=== PATIENT | male | born 1955 | race Two or more races ===

== ENCOUNTER 2021-09-11 07:52 | Inpatient (IN) | payer OTHER ==
[~2021-09-11] VITALS: Ht 162.6 cm; Wt 70.8 kg
[~2021-09-11 07:52] MED LIST: IBUP800T27 PO; TAMS0.4C36 PO; TRAM50TA2 PO
[2021-09-11] MEDS ORDERED: MINERAL OIL TOPICAL 10ml TOP ONE (08:42)
[2021-09-11] MEDS: THROMBIN (BOVINE) 5000 UNIT SOL VIAL ONE ×2 (08:42→12:42)
[2021-09-11] MEDS ORDERED: fentaNYL CITRATE 100 MCG/2 ML VL ONE (09:09)
[2021-09-11] MEDS ORDERED: MIDAZOLAM HCL 2MG/2ML 2ml VIAL (1mg/ml) ONE (09:09)
[2021-09-11] MEDS ORDERED: fentaNYL CITRATE 5 ML ONE ×2 (09:09→11:07)
[2021-09-11] MEDS ORDERED: MEPERIDINE HCL (25 MG/ML) 1ML VIAL ONE (09:10)
[2021-09-11] MEDS ORDERED: ceFAZolin 1GM/50ML 100 ML IV ONE (09:11)
[2021-09-11] MEDS ORDERED: GABAPENTIN 300 MG CAP PO ONE (09:15)
[2021-09-11] MEDS ORDERED: CELECOXIB 100 MG CAP PO ONE (09:15)
[2021-09-11] MEDS ORDERED: traMADol HCL 50 MG TAB PO ONE (09:15)
[2021-09-11] MEDS ORDERED: DexAMETHasone SOD PHOS 10MG/1ML VIAL INJ ONE (10:44)
[2021-09-11] MEDS ORDERED: PROPOFOL 10 MG/ML 20 ML IV ONE (10:44)
[2021-09-11] MEDS ORDERED: hydrALAZINE HCL 20 MG/ML VL IV PRN (10:45)
[2021-09-11] MEDS ORDERED: MORPHINE SULFATE 4 MG/ML SYR/VIAL IV PRN (10:45)
[2021-09-11] MEDS ORDERED: MIDAZOLAM HCL 2MG/2ML 2ml VIAL (1mg/ml) IV PRN (10:45)
[2021-09-11] MEDS ORDERED: ePHEDrine SULFATE 50 MG/ML AMP IV PRN (10:45)
[2021-09-11] MEDS ORDERED: LABETALOL HCL 5 MG/ML 4ML SYRINGE IV PRN (10:45)
[2021-09-11] MEDS ORDERED: HYDROmorphone HCL 2 MG/ML VL/or syr IV PRN (10:45)
[2021-09-11] MEDS ORDERED: ONDANSETRON HCL 4 MG/2 ML VIAL IV PRN ×2 (10:45→12:45)
[2021-09-11] MEDS ORDERED: ONDANSETRON HCL 4 MG/2 ML VIAL ONE (11:14)
[2021-09-11] MEDS ORDERED: OXYCODONE W/ ACETAMINOPHEN 5/325MG TABLET PO PRN (12:45)
[2021-09-11] MEDS ORDERED: MORPHINE SULFATE INJ 2 MG/ml SYRG IV PRN ×2 (12:45)
[2021-09-11] MEDS: LACTATED RINGER'S 1,000 ML IV SCH (12:45)
[2021-09-11] MEDS ORDERED: NITROGLYCERIN 0.4 MG SL TAB SL PRN ×2 (12:45)
[2021-09-11] MEDS ORDERED: ceFAZolin 1GM/50ML 50 ML IV SCH ×2 (14:00→17:00)
[2021-09-11 15:09] VITALS: BP 106/69
[2021-09-11] MEDS ORDERED: CYCL-839 PO (16:15)
[2021-09-11 16:31] VITALS: BP 106/69
[2021-09-11] MEDS: ceFAZolin 1GM/50ML 50 ML IV SCH ×2 (17:06→23:20)
[2021-09-11] MEDS: oxyCODONE HCL 5MG TAB PO PRN ×2 (17:07→23:21)
[2021-09-11] MEDS: HYDROmorphone HCL 2 MG/ML VL/or syr IV PRN (21:07)
[2021-09-11] MEDS: DOCUSATE SOD 100 MG CAP PO SCH (21:21)
[2021-09-11 22:00] VITALS: BP 113/71
[2021-09-11] MEDS ORDERED: SENNA 8.6 MG TAB PO SCH (22:00)
[2021-09-12] MEDS: HYDROmorphone HCL 2 MG/ML VL/or syr IV PRN (00:34)
[2021-09-12] MEDS: LACTATED RINGER'S 1,000 ML IV SCH (01:24)
[2021-09-12 05:00] VITALS: BP 124/67
[2021-09-12] MEDS: oxyCODONE HCL 5MG TAB PO PRN (07:55)
[2021-09-12] MEDS: ceFAZolin 1GM/50ML 50 ML IV SCH (07:55)
[2021-09-12] MEDS: DOCUSATE SOD 100 MG CAP PO SCH (07:55)
[2021-09-12 09:00] VITALS: BP 132/74
[2021-09-12] MEDS ORDERED: POLYETHYLENE GLYCOL 17 GM PWDR PO SCH (10:00)
[2021-09-12] MEDS ORDERED: BISACODYL 5 MG EC TAB PO ONE (10:30)
[2021-09-12] MEDS ORDERED: HEPARIN SODIUM (PORCINE) 5000 UNITS/ML 1ML VIAL SC SCH (12:00)
== END 2021-09-12 12:00 | disposition home or self-care (01) | DRG 472 ==
LOC: SUR 07:52 → TELE 13:49 → TELE-CENTR 14:32
PROVIDERS: ADMIT Orthopaedic Surgery; ATTEND Orthopaedic Surgery
PROC: 0RB30ZZ Excision of Cervical Vertebral Disc, Open Approach (ICD-10-PCS; 2021-09-11)
PROC: 01N10ZZ Release Cervical Nerve, Open Approach (ICD-10-PCS; 2021-09-11)
PROC: 0RG10A0 Fusion of Cervical Vertebral Joint with Interbody Fusion Device, Anterior Approach, Anterior Column, Open Approach (ICD-10-PCS; principal; 2021-09-11 09:39)
DX: M48.02 Spinal stenosis, cervical region (principal); M47.12 Other spondylosis with myelopathy, cervical region; G89.29 Other chronic pain; Z20.822 Contact with and (suspected) exposure to COVID-19
CPT/HCPCS: 76000; 86850; 86900; 86901; 97110; 97116; 97530; G0378; J0690; J1100; J2250; J2405; J2704

== ENCOUNTER 2021-10-01 21:06 | Inpatient (IN) | payer OTHER ==
[~2021-10-01] VITALS: Ht 165.1 cm; Wt 63.8 kg
[~2021-10-01 21:06] MED LIST changes: +CYCL-839 PO
[2021-10-02] VITALS (15 sets, daily range): BP systolic 114–159; BP diastolic 63–86
[2021-10-02] MEDS ORDERED: ALBUTEROL SULF 2.5 MG/0.5ML(0.5%) NEB SOLN NEB PRN (01:15)
[2021-10-02] MEDS ORDERED: MILK OF MAGNESIA 30ML SUSP PO PRN (01:30)
[2021-10-02 01:32] LABS: Basophils # (auto) 0.1 10 ^3/uL (0-0.2); Basophils % (auto) 0.6 % (0.0-2.0); Eosinophils # (auto) 0.1 10 ^3/uL (0-0.8); Hematocrit 35.9 % (41.0-53.0); Hemoglobin 12.6 g/dL (13.5-17.5); Lymphocytes # (auto) 1.4 10 ^3/uL (0.4-5.4); Lymphocytes % (auto) 15.8 % (10.0-50.0); Mean Corpuscular Volume 91.6 fL (80.0-100.0); Monocytes # (auto) 0.7 10 ^3/uL (0-1.3); Monocytes % (auto) 8.4 % (0.0-12.0); Neutrophils # (auto) 6.5 10 ^3/uL (1.6-8.6); Neutrophils % (auto) 74.2 % (37.0-80.0); Red Blood Cells 3.92 10^6/uL (4.5-5.90); Red Cell Distribution Width 13.2 % (11.8-14.3); White Blood Cell 8.8 10^3/uL (4.4-10.8)
[2021-10-02] MEDS: MORPHINE SULFATE INJ 2 MG/ml SYRG IV PRN ×2 (01:43→10:08)
[2021-10-02] MEDS: ONDANSETRON HCL 4 MG/2 ML VIAL IV PRN (01:44)
[2021-10-02 01:45] LABS: Partial Thromboplastin Time 29.1 sec (23.6-33.0)
[2021-10-02 01:51] LABS: Albumin 2.7 g/dL (3.4-5.0); BUN/Creatinine Ratio 33.9; Calcium 8.7 mg/dL (8.5-10.1); Potassium 3.9 mmol/L (3.5-5.1)
[2021-10-02 01:54] LABS: Bilirubin, Total 0.4 mg/dL (0.2-1.0); Total Protein 5.9 g/dL (6.4-8.2)
[2021-10-02 03:06] LABS: Urine Bacteria NONE SEEN /hpf (None Seen); Urine Blood Negative /uL (Negative); Urine Mucus FEW (None Seen); Urine Specific Gravity 1.025 (1.001-1.035); Urine WBC 2 /hpf (0 - 3)
[2021-10-02] MEDS: KETOROLAC TROMETH 30 MG/ML 1ML VIAL IV PRN ×2 (03:17→10:09)
[2021-10-02] MEDS: CYCLOBENZAPRINE HCL 10 MG TAB PO SCH ×4 (05:36→22:00)
[2021-10-02] MEDS: DOXYCYCLINE 100 MG TAB/CAP PO SCH ×2 (10:00→22:00)
[2021-10-02] MEDS ORDERED: ENOXAPARIN SOD 40 MG/0.4 ML SYRINGE SC SCH (10:00)
[2021-10-02] MEDS: methylPREDNISolone SOD SUCC 40 MG/ML VL IV SCH (10:06)
[2021-10-02] MEDS: FAMOTIDINE 20 MG TAB PO SCH ×2 (10:07→22:00)
[2021-10-02] MEDS ORDERED: EPINEPHrine HCL 1 MG/1 ML AMP ONE (12:44)
[2021-10-02] MEDS ORDERED: BUPIVACAINE 0.25% INJ 50ML VIAL ONE (12:44)
[2021-10-02] MEDS ORDERED: MINERAL OIL TOPICAL 10ml TOP ONE (12:44)
[2021-10-02] MEDS ORDERED: THROMBIN (BOVINE) 5000 UNIT SOL VIAL ONE ×2 (12:44→17:46)
[2021-10-02] MEDS ORDERED: VANCOMYCIN HCL 1000 MG VL ONE (12:45)
[2021-10-02] MEDS ORDERED: ceFAZolin 1GM/50ML 100 ML IV ONE (13:00)
[2021-10-02] MEDS ORDERED: SUCCINYLCHOLINE CHLORIDE 20 MG/ML 10ML VIAL IV ONE (13:07)
[2021-10-02] MEDS ORDERED: fentaNYL CITRATE 5 ML ONE (13:07)
[2021-10-02] MEDS ORDERED: PROPOFOL 10 MG/ML 20 ML IV ONE ×3 (13:08→19:27)
[2021-10-02] MEDS ORDERED: fentaNYL CITRATE 100 MCG/2 ML VL ONE (13:15)
[2021-10-02] MEDS ORDERED: MIDAZOLAM HCL 2MG/2ML 2ml VIAL (1mg/ml) ONE (13:16)
[2021-10-02] MEDS ORDERED: HYDROmorphone HCL 2 MG/ML VL/or syr ONE ×3 (14:32→20:08)
[2021-10-02] MEDS ORDERED: METOCLOPRAMIDE HCL 5MG/ml INJ 2ml VIAL ONE (19:26)
[2021-10-02] MEDS ORDERED: DexAMETHasone SOD PHOS 10MG/1ML VIAL INJ ONE (19:26)
[2021-10-02] MEDS ORDERED: ceFAZolin 1GM VL ONE (19:26)
[2021-10-02] MEDS: LACTATED RINGER'S 1,000 ML IV SCH (19:30)
[2021-10-02] MEDS ORDERED: NITROGLYCERIN 0.4 MG SL TAB SL PRN (19:30)
[2021-10-02] MEDS: HYDROmorphone HCL 2 MG/ML VL/or syr IV PRN ×3 (20:00→20:20)
[2021-10-02] MEDS ORDERED: METOCLOPRAMIDE HCL 5MG/ml INJ 2ml VIAL IV PRN (20:15)
[2021-10-02] MEDS ORDERED: fentaNYL CITRATE 100 MCG/2 ML VL IV PRN (20:15)
[2021-10-02] MEDS ORDERED: ONDANSETRON HCL 4 MG/2 ML VIAL IV PRN (20:15)
[2021-10-02] MEDS ORDERED: MIDAZOLAM DRIP 50 mg/50mL 50 ML IV ONE (20:21)
[2021-10-02] MEDS: MIDAZOLAM DRIP 50 mg/50mL 50 ML IV SCH (20:26)
[2021-10-02] MEDS: PROPOFOL 100 ML IV SCH (20:36)
[2021-10-02] MEDS: LABETALOL HCL 5 MG/ML 4ML SYRINGE IV PRN ×2 (20:55→21:10)
[2021-10-02] MEDS: TAMSULOSIN HYDROCHLORIDE 0.4 MG CAP PO SCH (22:00)
[2021-10-02] MEDS: ceFAZolin 1GM/50ML 50 ML IV SCH (22:00)
[2021-10-02] MEDS: DOCUSATE SOD 100 MG CAP PO SCH (22:00)
[2021-10-02] MEDS: fentaNYL Drip 2500mCg/250mlNS 250 ML IV SCH (22:00)
[2021-10-02] MEDS: SENNA 8.6 MG TAB PO SCH (22:00)
[2021-10-03] VITALS (38 sets, daily range): BP systolic 108–176; BP diastolic 61–114
[2021-10-03] MEDS ORDERED: FUROSEMIDE 20 MG/2 ML VIAL IV ONE
[2021-10-03] MEDS: LACTATED RINGER'S 1,000 ML IV SCH ×3 (05:30→21:50)
[2021-10-03] MEDS: CYCLOBENZAPRINE HCL 10 MG TAB PO SCH ×4 (06:00→21:48)
[2021-10-03] MEDS: ceFAZolin 1GM/50ML 50 ML IV SCH ×3 (06:00→21:48)
[2021-10-03] MEDS: DOCUSATE SOD 100 MG CAP PO SCH ×2 (09:13→21:48)
[2021-10-03] MEDS: SENNA 8.6 MG TAB PO SCH ×2 (09:13→21:49)
[2021-10-03] MEDS: POLYETHYLENE GLYCOL 17 GM PWDR PO SCH (09:13)
[2021-10-03] MEDS: FAMOTIDINE 20 MG TAB PO SCH ×2 (09:13→21:49)
[2021-10-03] MEDS: DOXYCYCLINE 100 MG TAB/CAP PO SCH ×2 (09:14→21:49)
[2021-10-03] MEDS: methylPREDNISolone SOD SUCC 40 MG/ML VL IV SCH (09:29)
[2021-10-03 13:46] LABS: Basophils # (auto) 0.1 10 ^3/uL (0-0.2); Basophils % (auto) 0.5 % (0.0-2.0); Eosinophils # (auto) 0 10 ^3/uL (0-0.8); Hematocrit 38.7 % (41.0-53.0); Hemoglobin 13.2 g/dL (13.5-17.5); Lymphocytes # (auto) 0.5 10 ^3/uL (0.4-5.4); Lymphocytes % (auto) 3.1 % (10.0-50.0); Mean Corpuscular Hemoglobin 31.2 pg (28.0-32.0); Mean Corpuscular Hgb Conc. 34.2 g/dL (32.0-36.0); Mean Corpuscular Volume 91.3 fL (80.0-100.0); Monocytes # (auto) 0.6 10 ^3/uL (0-1.3); Monocytes % (auto) 3.2 % (0.0-12.0); Neutrophils # (auto) 15.9 10 ^3/uL (1.6-8.6); Neutrophils % (auto) 93.2 % (37.0-80.0); Red Blood Cells 4.24 10^6/uL (4.5-5.90); Red Cell Distribution Width 13.2 % (11.8-14.3); White Blood Cell 17.1 10^3/uL (4.4-10.8)
[2021-10-03] MEDS: MORPHINE SULFATE INJ 2 MG/ml SYRG IV PRN ×2 (14:04→21:09)
[2021-10-03 14:06] LABS: BUN/Creatinine Ratio 33.3; Calcium 8.4 mg/dL (8.5-10.1); Potassium 3.7 mmol/L (3.5-5.1)
[2021-10-03] MEDS: OXYCODONE W/ ACETAMINOPHEN 5/325MG TABLET PO PRN ×2 (17:55→23:57)
[2021-10-03] MEDS: MIDAZOLAM DRIP 50 mg/50mL 50 ML IV SCH (19:28)
[2021-10-03] MEDS: fentaNYL Drip 2500mCg/250mlNS 250 ML IV SCH (19:28)
[2021-10-03] MEDS: PROPOFOL 100 ML IV SCH (19:28)
[2021-10-03] MEDS: ONDANSETRON HCL 4 MG/2 ML VIAL IV PRN (20:52)
[2021-10-03] MEDS: TAMSULOSIN HYDROCHLORIDE 0.4 MG CAP PO SCH (21:48)
[2021-10-03] MEDS: PANTOPRAZOLE 40 MG/10 ML VIAL INJ IV SCH (23:56)
[2021-10-03] MEDS: PROMETHAZINE HCL 25 MG/ML 1ML IV PRN (23:57)
[2021-10-04] VITALS (17 sets, daily range): BP systolic 129–195; BP diastolic 66–94
[2021-10-04] MEDS: MORPHINE SULFATE INJ 2 MG/ml SYRG IV PRN ×4 (02:03→16:26)
[2021-10-04 03:23] LABS: Basophils # (auto) 0.1 10 ^3/uL (0-0.2); Basophils % (auto) 0.4 % (0.0-2.0); Eosinophils # (auto) 0 10 ^3/uL (0-0.8); Eosinophils % (auto) 0.1 % (0.0-7.0); Hematocrit 36.5 % (41.0-53.0); Hemoglobin 12.4 g/dL (13.5-17.5); Lymphocytes # (auto) 0.9 10 ^3/uL (0.4-5.4); Lymphocytes % (auto) 6.3 % (10.0-50.0); Mean Corpuscular Hgb Conc. 34.1 g/dL (32.0-36.0); Mean Corpuscular Volume 91.2 fL (80.0-100.0); Monocytes # (auto) 1.1 10 ^3/uL (0-1.3); Monocytes % (auto) 7.7 % (0.0-12.0); Neutrophils # (auto) 12.5 10 ^3/uL (1.6-8.6); Neutrophils % (auto) 85.5 % (37.0-80.0); Red Cell Distribution Width 13.4 % (11.8-14.3); White Blood Cell 14.6 10^3/uL (4.4-10.8)
[2021-10-04 03:42] LABS: BUN/Creatinine Ratio 41.7; Potassium 3.6 mmol/L (3.5-5.1)
[2021-10-04] MEDS: CYCLOBENZAPRINE HCL 10 MG TAB PO SCH ×3 (05:34→22:35)
[2021-10-04] MEDS: ceFAZolin 1GM/50ML 50 ML IV SCH ×3 (05:34→22:37)
[2021-10-04] MEDS: POLYETHYLENE GLYCOL 17 GM PWDR PO SCH (09:42)
[2021-10-04] MEDS: FAMOTIDINE 20 MG TAB PO SCH ×2 (09:42→22:36)
[2021-10-04] MEDS: OXYCODONE W/ ACETAMINOPHEN 5/325MG TABLET PO PRN ×3 (09:43→20:41)
[2021-10-04] MEDS: DOCUSATE SOD 100 MG CAP PO SCH ×2 (09:43→22:35)
[2021-10-04] MEDS: DOXYCYCLINE 100 MG TAB/CAP PO SCH ×2 (09:44→22:36)
[2021-10-04] MEDS: SENNA 8.6 MG TAB PO SCH ×2 (09:44→22:36)
[2021-10-04] MEDS: methylPREDNISolone SOD SUCC 40 MG/ML VL IV SCH (09:44)
[2021-10-04] MEDS: PANTOPRAZOLE 40 MG/10 ML VIAL INJ IV SCH (09:44)
[2021-10-04] MEDS: LACTATED RINGER'S 1,000 ML IV SCH (11:30)
[2021-10-04] MEDS: HEPARIN SODIUM (PORCINE) 5000 UNITS/ML 1ML VIAL SC SCH ×2 (13:59→22:49)
[2021-10-04] MEDS ORDERED: BISACODYL 10 MG RECT SUPP PR ONE (17:00)
[2021-10-04] MEDS: TAMSULOSIN HYDROCHLORIDE 0.4 MG CAP PO SCH (22:36)
[2021-10-05] MEDS: MORPHINE SULFATE INJ 2 MG/ml SYRG IV PRN ×3 (00:54→22:59)
[2021-10-05 05:07] VITALS: BP 175/79
[2021-10-05] MEDS: ceFAZolin 1GM/50ML 50 ML IV SCH ×3 (06:34→21:29)
[2021-10-05] MEDS: CYCLOBENZAPRINE HCL 10 MG TAB PO SCH ×3 (06:34→21:29)
[2021-10-05] MEDS: HEPARIN SODIUM (PORCINE) 5000 UNITS/ML 1ML VIAL SC SCH ×3 (06:35→21:32)
[2021-10-05 09:00] VITALS: BP 111/79
[2021-10-05] MEDS: OXYCODONE W/ ACETAMINOPHEN 5/325MG TABLET PO PRN ×2 (09:06→20:27)
[2021-10-05] MEDS: POLYETHYLENE GLYCOL 17 GM PWDR PO SCH (10:00)
[2021-10-05] MEDS: DOCUSATE SOD 100 MG CAP PO SCH (10:00)
[2021-10-05] MEDS: SENNA 8.6 MG TAB PO SCH (10:00)
[2021-10-05] MEDS: methylPREDNISolone SOD SUCC 40 MG/ML VL IV SCH (11:28)
[2021-10-05] MEDS: PANTOPRAZOLE 40 MG/10 ML VIAL INJ IV SCH (11:28)
[2021-10-05] MEDS: DOXYCYCLINE 100 MG TAB/CAP PO SCH ×2 (11:29→21:30)
[2021-10-05] MEDS: FAMOTIDINE 20 MG TAB PO SCH ×2 (11:29→21:30)
[2021-10-05 13:00] VITALS: BP 136/83
[2021-10-05 14:56] VITALS: BP 136/83
[2021-10-05 16:35] VITALS: BP 138/78
[2021-10-05] MEDS: TAMSULOSIN HYDROCHLORIDE 0.4 MG CAP PO SCH (21:30)
[2021-10-05 22:00] VITALS: BP 115/91
[2021-10-06] MEDS ORDERED: SENNA 8.6 MG TAB PO PRN (00:35)
[2021-10-06] MEDS ORDERED: DOCUSATE SOD 100 MG CAP PO PRN (00:45)
[2021-10-06] MEDS: OXYCODONE W/ ACETAMINOPHEN 5/325MG TABLET PO PRN ×4 (01:10→18:23)
[2021-10-06] MEDS: MORPHINE SULFATE INJ 2 MG/ml SYRG IV PRN ×4 (04:28→20:59)
[2021-10-06] MEDS: ceFAZolin 1GM/50ML 50 ML IV SCH ×3 (05:22→22:05)
[2021-10-06] MEDS: CYCLOBENZAPRINE HCL 10 MG TAB PO SCH ×3 (05:23→22:04)
[2021-10-06] MEDS: HEPARIN SODIUM (PORCINE) 5000 UNITS/ML 1ML VIAL SC SCH ×3 (05:28→22:05)
[2021-10-06] MEDS: POLYETHYLENE GLYCOL 17 GM PWDR PO SCH (08:51)
[2021-10-06 09:00] VITALS: BP 120/80
[2021-10-06] MEDS: PANTOPRAZOLE 40 MG/10 ML VIAL INJ IV SCH (09:31)
[2021-10-06] MEDS: methylPREDNISolone SOD SUCC 40 MG/ML VL IV SCH (09:31)
[2021-10-06] MEDS: DOXYCYCLINE 100 MG TAB/CAP PO SCH ×2 (09:31→22:04)
[2021-10-06] MEDS: FAMOTIDINE 20 MG TAB PO SCH ×2 (09:31→22:04)
[2021-10-06] MEDS ORDERED: FLUCONAZOLE 200MG/100ML 100 ML IV SCH (10:00)
[2021-10-06 11:00] VITALS: BP 121/76
[2021-10-06 11:15] LABS: Basophils # (auto) 0.1 10 ^3/uL (0-0.2); Basophils % (auto) 0.5 % (0.0-2.0); Eosinophils # (auto) 0.2 10 ^3/uL (0-0.8); Hematocrit 36.6 % (41.0-53.0); Hemoglobin 12.4 g/dL (13.5-17.5); Lymphocytes # (auto) 0.7 10 ^3/uL (0.4-5.4); Lymphocytes % (auto) 5.6 % (10.0-50.0); Mean Corpuscular Hemoglobin 30.9 pg (28.0-32.0); Mean Corpuscular Volume 91.1 fL (80.0-100.0); Monocytes # (auto) 0.7 10 ^3/uL (0-1.3); Monocytes % (auto) 5.4 % (0.0-12.0); Neutrophils # (auto) 10.4 10 ^3/uL (1.6-8.6); Neutrophils % (auto) 86.5 % (37.0-80.0); Nucleated Red Blood Cells % 0.1 %; Red Blood Cells 4.02 10^6/uL (4.5-5.90); White Blood Cell 12.1 10^3/uL (4.4-10.8)
[2021-10-06 11:33] LABS: BUN/Creatinine Ratio 31.6; Calcium 8.1 mg/dL (8.5-10.1); Magnesium 2.2 mg/dL (1.6-2.6); Potassium 3.2 mmol/L (3.5-5.1)
[2021-10-06 13:00] VITALS: BP 141/81
[2021-10-06] MEDS ORDERED: POTASSIUM EFFERVESENT TAB 25 MEQ PO ONE (13:00)
[2021-10-06 16:48] VITALS: BP 123/74
[2021-10-06] MEDS: TAMSULOSIN HYDROCHLORIDE 0.4 MG CAP PO SCH (22:03)
[2021-10-07] MEDS: OXYCODONE W/ ACETAMINOPHEN 5/325MG TABLET PO PRN ×6 (00:14→23:30)
[2021-10-07] MEDS: PROMETHAZINE HCL 25 MG/ML 1ML IV PRN (02:20)
[2021-10-07] MEDS: MORPHINE SULFATE INJ 2 MG/ml SYRG IV PRN ×5 (02:20→21:00)
[2021-10-07 05:00] VITALS: BP 137/79
[2021-10-07] MEDS: CYCLOBENZAPRINE HCL 10 MG TAB PO SCH ×3 (05:04→21:01)
[2021-10-07] MEDS: ceFAZolin 1GM/50ML 50 ML IV SCH ×2 (05:04→13:35)
[2021-10-07] MEDS: HEPARIN SODIUM (PORCINE) 5000 UNITS/ML 1ML VIAL SC SCH ×3 (05:06→21:01)
[2021-10-07 05:48] LABS: Basophils # (auto) 0 10 ^3/uL (0-0.2); Basophils % (auto) 0.4 % (0.0-2.0); Eosinophils # (auto) 0.3 10 ^3/uL (0-0.8); Eosinophils % (auto) 2.6 % (0.0-7.0); Hematocrit 36.3 % (41.0-53.0); Hemoglobin 12.3 g/dL (13.5-17.5); Lymphocytes # (auto) 1.5 10 ^3/uL (0.4-5.4); Lymphocytes % (auto) 14.6 % (10.0-50.0); Mean Corpuscular Hemoglobin 30.9 pg (28.0-32.0); Mean Corpuscular Hgb Conc. 33.8 g/dL (32.0-36.0); Mean Corpuscular Volume 91.5 fL (80.0-100.0); Monocytes # (auto) 1.2 10 ^3/uL (0-1.3); Monocytes % (auto) 11.5 % (0.0-12.0); Neutrophils # (auto) 7.3 10 ^3/uL (1.6-8.6); Neutrophils % (auto) 70.9 % (37.0-80.0); Red Blood Cells 3.96 10^6/uL (4.5-5.90); Red Cell Distribution Width 12.9 % (11.8-14.3); White Blood Cell 10.4 10^3/uL (4.4-10.8)
[2021-10-07 06:05] LABS: Magnesium 2.1 mg/dL (1.6-2.6); Potassium 3.2 mmol/L (3.5-5.1)
[2021-10-07 06:08] LABS: BUN/Creatinine Ratio 27.5; Calcium 8.4 mg/dL (8.5-10.1)
[2021-10-07 09:00] VITALS: BP 133/80
[2021-10-07] MEDS: DOXYCYCLINE 100 MG TAB/CAP PO SCH (09:47)
[2021-10-07] MEDS: FAMOTIDINE 20 MG TAB PO SCH ×2 (09:47→21:02)
[2021-10-07] MEDS: methylPREDNISolone SOD SUCC 40 MG/ML VL IV SCH (09:47)
[2021-10-07] MEDS: PANTOPRAZOLE 40 MG/10 ML VIAL INJ IV SCH (09:47)
[2021-10-07 13:00] VITALS: BP 151/92
[2021-10-07] MEDS ORDERED: VANCOMYCIN PER PHARMACY 0 MG IV SCH (15:45)
[2021-10-07] MEDS ORDERED: VANCOMYCIN 1GM/250ML 250 ML IV ONE (16:30)
[2021-10-07 16:42] VITALS: BP 132/82
[2021-10-07 18:02] LABS: INR 0.98 (0.9-1.15)
[2021-10-07] MEDS: CEFTRIAXONE SODIUM 2 GM in D5W 5% 50 ML IV SCH (18:16)
[2021-10-07] MEDS: TAMSULOSIN HYDROCHLORIDE 0.4 MG CAP PO SCH (21:01)
[2021-10-07 22:00] VITALS: BP 121/74
[2021-10-08] MEDS: MORPHINE SULFATE INJ 2 MG/ml SYRG IV PRN ×3 (03:13→15:33)
[2021-10-08 05:00] VITALS: BP 136/83
[2021-10-08] MEDS: CYCLOBENZAPRINE HCL 10 MG TAB PO SCH ×2 (05:30→15:07)
[2021-10-08] MEDS: OXYCODONE W/ ACETAMINOPHEN 5/325MG TABLET PO PRN ×3 (05:30→17:50)
[2021-10-08] MEDS: VANCOMYCIN 1GM/250ML 250 ML IV SCH ×2 (05:30→17:51)
[2021-10-08] MEDS: HEPARIN SODIUM (PORCINE) 5000 UNITS/ML 1ML VIAL SC SCH ×2 (05:32→15:18)
[2021-10-08 09:00] VITALS: BP 136/89
[2021-10-08] MEDS: FAMOTIDINE 20 MG TAB PO SCH (10:17)
[2021-10-08] MEDS: methylPREDNISolone SOD SUCC 40 MG/ML VL IV SCH (10:17)
[2021-10-08] MEDS: CEFTRIAXONE SODIUM 2 GM in D5W 5% 50 ML IV SCH (10:17)
[2021-10-08] MEDS: PANTOPRAZOLE 40 MG/10 ML VIAL INJ IV SCH (10:17)
[2021-10-08 13:00] VITALS: BP 145/86
[2021-10-08] MEDS ORDERED: POTASSIUM EFFERVESENT TAB 25 MEQ PO ONE (13:15)
[2021-10-08] MEDS ORDERED: LIDOCAINE 1% (LOCAL ANESTH.) PF 5ml SDV ID ONE (14:30)
[2021-10-08 17:00] VITALS: BP 141/82
[2021-10-08] MEDS ORDERED: LIDOCAINE 2% (LOCAL ANESTH.) PF 5ml SDV IJ ONE (20:29)
[2021-10-08] MEDS ORDERED: PHENYLEPHRINE HCL 10 MG/ML VL IV ONE (20:29)
[2021-10-08] MEDS ORDERED: SODIUM CHLOR 0.9% PF (SALINE LOCK) 10ML VIAL/SYR IV SCH (22:00)
== END 2021-10-08 20:30 | DRG 471 ==
LOC: EAST 23:40 → ICU WEST 10-02 21:55 → TELE-WESTW 10-04 14:40
PROVIDERS: ADMIT Internal Medicine; ATTEND Internal Medicine
PROC: 0RG1070 Fusion of Cervical Vertebral Joint with Autologous Tissue Substitute, Anterior Approach, Anterior Column, Open Approach (ICD-10-PCS; 2021-10-02)
PROC: 0RP10AZ Removal of Interbody Fusion Device from Cervical Vertebral Joint, Open Approach (ICD-10-PCS; 2021-10-02)
PROC: 0BH17EZ Insertion of Endotracheal Airway into Trachea, Via Natural or Artificial Opening (ICD-10-PCS; 2021-10-02)
PROC: 4A11X4G Monitoring of Peripheral Nervous Electrical Activity, Intraoperative, External Approach (ICD-10-PCS; 2021-10-02)
PROC: 5A1935Z Respiratory Ventilation, Less than 24 Consecutive Hours (ICD-10-PCS; 2021-10-02)
PROC: 01N10ZZ Release Cervical Nerve, Open Approach (ICD-10-PCS; principal; 2021-10-02 13:55)
DX: M48.02 Spinal stenosis, cervical region (principal); J96.01 Acute respiratory failure with hypoxia; T81.41XA Infection following a procedure, superficial incisional surgical site, initial encounter; M47.12 Other spondylosis with myelopathy, cervical region; J98.11 Atelectasis; G93.40 Encephalopathy, unspecified; D72.829 Elevated white blood cell count, unspecified; G89.29 Other chronic pain; Z20.822 Contact with and (suspected) exposure to COVID-19; Z83.3 Family history of diabetes mellitus; Z80.42 Family history of malignant neoplasm of prostate; Z98.1 Arthrodesis status
CPT/HCPCS: 36415; 36569; 36600; 71045; 72040; 72141; 72148; 76000; 80048; 80053; 81001; 82565; 82805; 83735; 85025; 85610; 85730; 86850; 86900; 86901; 87070; 87075; 87077; 87081; 87186; 87205; 93005; 94002; 94003; 94640; 97110; 97163; 97530; C9113; G0378; J0171; J0330; J0690; J0696; J1100; J1885; J2001; J2250; J2405; J2704; J3490; J7060

== ENCOUNTER 2021-10-11 01:42 | Emergency (ER) | payer OTHER ==
[~2021-10-11 01:42] MED LIST changes: -IBUP800T27 PO
[2021-10-11] MEDS ORDERED: OXYCODONE W/ ACETAMINOPHEN 5/325MG TABLET PO ONE (03:00)
[2021-10-11 14:00] VITALS: BP 190/112
== END 2021-10-11 17:54 | disposition home or self-care (01) ==
LOC: EDBD 01:42 → ER 01:42
DX: S16.1XXA Strain of muscle, fascia and tendon at neck level, initial encounter (principal); W18.09XA Striking against other object with subsequent fall, initial encounter; Y93.89 Activity, other specified; Y92.89 Other specified places as the place of occurrence of the external cause; Y99.8 Other external cause status
CPT/HCPCS: 70450; 72125; 93005

== ENCOUNTER 2023-02-04 06:03 | Inpatient (IN) | payer OTHER ==
[~2023-02-04] VITALS: Ht 157.5 cm; Wt 66.6 kg
[~2023-02-04 06:03] MED LIST changes: +ATOR20TA PO; +BACL20TA PO; +GABA-1308 PO; +IBUP-1455 PO
[2023-02-04] MEDS ORDERED: ceFAZolin 2 GM/D5W100ml 100 ML IV ONE (08:15)
[2023-02-04] MEDS ORDERED: LIDOCAINE W/ EPINEPHRINE 1% 20ML VIAL ONE (11:17)
[2023-02-04] MEDS ORDERED: HYDROmorphone HCL 2 MG/ML VL/or syr ONE (12:05)
[2023-02-04] MEDS ORDERED: fentaNYL CITRATE 100 MCG/2 ML VL ONE ×2 (12:05→12:50)
[2023-02-04] MEDS ORDERED: MIDAZOLAM HCL 2MG/2ML 2ml VIAL (1mg/ml) ONE (12:05)
[2023-02-04] MEDS ORDERED: SUCCINYLCHOLINE CHLORIDE 20 MG/ML 10ML VIAL IV ONE (12:07)
[2023-02-04] MEDS ORDERED: PROPOFOL 10 MG/ML 20 ML IV ONE (12:20)
[2023-02-04] MEDS ORDERED: KETOROLAC TROMETH 30 MG/ML 1ML VIAL IV ONE (13:00)
[2023-02-04] MEDS ORDERED: ePHEDrine SULFATE 50 MG/ML AMP IV PRN (13:00)
[2023-02-04] MEDS ORDERED: hydrALAZINE HCL 20 MG/ML VL IV PRN (13:00)
[2023-02-04] MEDS ORDERED: MORPHINE SULFATE 4 MG/ML SYR/VIAL IV PRN (13:00)
[2023-02-04] MEDS ORDERED: LABETALOL HCL 5 MG/ML 4ML SYRINGE IV PRN (13:00)
[2023-02-04] MEDS ORDERED: MIDAZOLAM HCL 2MG/2ML 2ml VIAL (1mg/ml) IV PRN (13:00)
[2023-02-04] MEDS ORDERED: ONDANSETRON HCL 4 MG/2 ML VIAL IV PRN (13:00)
[2023-02-04] MEDS ORDERED: HYDROmorphone HCL 2 MG/ML VL/or syr IV PRN ×2 (13:00→16:30)
[2023-02-04] MEDS ORDERED: BUPIVACAINE HCL 0.25% P/F 10 ML VIAL ONE (13:25)
[2023-02-04] MEDS ORDERED: MORPHINE SULFATE INJ 2 MG/ml SYRG IV PRN (15:15)
[2023-02-04] MEDS ORDERED: NITROGLYCERIN 0.4 MG SL TAB SL PRN (15:15)
[2023-02-04] MEDS ORDERED: ceFAZolin 1GM/50ML 50 ML IV SCH (15:15)
[2023-02-04] MEDS ORDERED: SUGAMMADEX 200mg/2ml Vial (100MG/ML) IV ONE (15:56)
[2023-02-04 16:16] VITALS: PULSE 100; RESP 15; O2SAT 98
[2023-02-04 17:54] VITALS: BP 151/64; PULSE 89; RESP 20; TEMP 98.3; O2SAT 96
[2023-02-04] MEDS ORDERED: CYCLOBENZAPRINE HCL 10 MG TAB PO ONE (18:30)
[2023-02-04 18:31] VITALS: BP 151/64; PULSE 89; RESP 20; TEMP 98.3; O2SAT 96
[2023-02-04] MEDS: TAMSULOSIN HYDROCHLORIDE 0.4 MG CAP PO SCH (18:44)
[2023-02-04] MEDS: D5W/SOD CHLO 0.9% 1,000 ML IV SCH (18:44)
[2023-02-04 20:00] VITALS: PULSE 79
[2023-02-04] MEDS: HYDROcodone-ACET 10/325MG TAB PO PRN (20:26)
[2023-02-04] MEDS: DOCUSATE SOD 100 MG CAP PO SCH (20:26)
[2023-02-04] MEDS: ceFAZolin 1GM/50ML 50 ML IV SCH (20:26)
[2023-02-04] MEDS: ATORVASTATIN 20 MG TAB PO SCH (20:26)
[2023-02-04 21:54] VITALS: BP 127/72; PULSE 98; RESP 16; TEMP 98.8; O2SAT 92
[2023-02-04] MEDS ORDERED: CYCLOBENZAPRINE HCL 10 MG TAB PO SCH (22:00)
[2023-02-04] MEDS: MORPHINE SULFATE INJ 2 MG/ml SYRG IV PRN (22:38)
[2023-02-05] VITALS (7 sets, daily range): BP systolic 101–153; BP diastolic 48–71; PULSE 67–106; RESP 16–19; TEMP 98–99.9; O2SAT 88–92
[2023-02-05] MEDS: D5W/SOD CHLO 0.9% 1,000 ML IV SCH ×3 (01:36→21:20)
[2023-02-05] MEDS: ceFAZolin 1GM/50ML 50 ML IV SCH (03:46)
[2023-02-05] MEDS: DOCUSATE SOD 100 MG CAP PO SCH ×2 (07:59→21:15)
[2023-02-05] MEDS: HYDROcodone-ACET 10/325MG TAB PO PRN (08:00)
[2023-02-05] MEDS ORDERED: CYCLOBENZAPRINE HCL 10 MG TAB PO SCH (10:00)
[2023-02-05] MEDS: ONDANSETRON HCL 4 MG/2 ML VIAL IV PRN (16:19)
[2023-02-05] MEDS: MORPHINE SULFATE INJ 2 MG/ml SYRG IV PRN (16:29)
[2023-02-05] MEDS: TAMSULOSIN HYDROCHLORIDE 0.4 MG CAP PO SCH (17:48)
[2023-02-05] MEDS: ACETAMINOPHEN 325 MG TAB PO PRN (18:44)
[2023-02-05] MEDS: OXYCODONE W/ ACETAMINOPHEN 5/325MG TABLET PO PRN (21:16)
[2023-02-05] MEDS: ATORVASTATIN 20 MG TAB PO SCH (21:16)
[2023-02-06] MEDS: MORPHINE SULFATE INJ 2 MG/ml SYRG IV PRN (00:42)
[2023-02-06] MEDS: OXYCODONE W/ ACETAMINOPHEN 5/325MG TABLET PO PRN ×4 (05:40→23:42)
[2023-02-06 08:00] VITALS: BP 168/82; PULSE 113; PULSE 78; RESP 18; TEMP 98.4
[2023-02-06] MEDS: ACETAMINOPHEN 325 MG TAB PO PRN ×2 (08:01→16:08)
[2023-02-06] MEDS: DOCUSATE SOD 100 MG CAP PO SCH ×2 (08:01→21:08)
[2023-02-06] MEDS ORDERED: VANCOMYCIN PER PHARMACY 0 MG IV SCH (08:30)
[2023-02-06 08:48] VITALS: BP 108/63; PULSE 119; RESP 19; TEMP 103; O2SAT 91
[2023-02-06] MEDS ORDERED: VANCOMYCIN 1GM/250ML 250 ML IV ONE (09:00)
[2023-02-06 09:32] LABS: COVID19 ANTIGEN SOFIA FIA NEGATIVE (NEGATIVE)
[2023-02-06] MEDS: D5W/SOD CHLO 0.9% 1,000 ML IV SCH (09:56)
[2023-02-06 10:07] LABS: Basophils # (auto) 0 10 ^3/uL (0-0.2); Basophils % (auto) 0.2 % (0.0-2.0); Eosinophils # (auto) 0 10 ^3/uL (0-0.8); Hematocrit 28.1 % (41.0-53.0); Hemoglobin 9.4 g/dL (13.5-17.5); Lymphocytes # (auto) 0.5 10 ^3/uL (0.4-5.4); Mean Corpuscular Hemoglobin 30.6 pg (28.0-32.0); Mean Corpuscular Hgb Conc. 33.6 g/dL (32.0-36.0); Mean Corpuscular Volume 90.9 fL (80.0-100.0); Monocytes # (auto) 0.7 10 ^3/uL (0-1.3); Monocytes % (auto) 6.4 % (0.0-12.0); Neutrophils # (auto) 9.2 10 ^3/uL (1.6-8.6); Neutrophils % (auto) 88.4 % (37.0-80.0); Red Blood Cells 3.09 10^6/uL (4.5-5.90); Red Cell Distribution Width 15.7 % (11.8-14.3); White Blood Cell 10.4 10^3/uL (4.4-10.8)
[2023-02-06 10:43] LABS: Alanine Aminotransferase 21 U/L (7-40); Alkaline Phosphatase 99 U/L (46-116); Anion Gap 6 (5-15); BUN/Creatinine Ratio 9.6 (10.0-20.0); Blood Urea Nitrogen 8 mg/dL (9-23); Carbon Dioxide 28 mmol/L (20-30); Chloride 104 mmol/L (98-107); Glucose 136 mg/dL (74-106); Potassium 3.6 mmol/L (3.5-5.1); Sodium 138 mmol/L (136-145)
[2023-02-06 10:44] LABS: Aspartate Aminotransferase 24 U/L (13-40); Bilirubin, Total 0.4 mg/dL (0.2-1.0); Total Protein 5.2 g/dL (5.7-8.2)
[2023-02-06 12:45] VITALS: BP 112/65; PULSE 93; RESP 16; TEMP 98.9; O2SAT 93
[2023-02-06] MEDS ORDERED: CEFEPIME 2GM/50ML NS 50 ML IV SCH (14:00)
[2023-02-06] MEDS: ONDANSETRON HCL 4 MG/2 ML VIAL IV PRN (15:01)
[2023-02-06 16:58] VITALS: BP 121/77; PULSE 112; RESP 17; TEMP 103.1; O2SAT 92
[2023-02-06] MEDS: TAMSULOSIN HYDROCHLORIDE 0.4 MG CAP PO SCH (17:52)
[2023-02-06] MEDS: MEROPENEM 2 GM in SODIUM CHL 0.9% 250 ML IV SCH (19:48)
[2023-02-06 20:00] VITALS: PULSE 88; PULSE 92; RESP 18; O2SAT 92
[2023-02-06 20:54] LABS: Rapid Influenza A Negative (Negative); Rapid Influenza B Negative (Negative)
[2023-02-06] MEDS: GABAPENTIN 100 MG CAP PO SCH (21:07)
[2023-02-06] MEDS: ATORVASTATIN 20 MG TAB PO SCH (21:08)
[2023-02-06] MEDS: CYCLOBENZAPRINE HCL 10 MG TAB PO SCH (21:08)
[2023-02-06 22:00] VITALS: BP 109/60; PULSE 79; RESP 17; TEMP 98.3; O2SAT 95
[2023-02-06] MEDS ORDERED: VANCOMYCIN 1GM/250ML 250 ML IV SCH (22:00)
[2023-02-07] VITALS (7 sets, daily range): BP systolic 98–132; BP diastolic 59–81; PULSE 70–98; RESP 16–18; TEMP 37.1; O2SAT 91–96
[2023-02-07] MEDS: MEROPENEM 2 GM in SODIUM CHL 0.9% 250 ML IV SCH ×3 (01:49→18:38)
[2023-02-07] MEDS: MORPHINE SULFATE INJ 2 MG/ml SYRG IV PRN ×3 (04:24→22:56)
[2023-02-07] MEDS: GABAPENTIN 100 MG CAP PO SCH ×3 (05:06→21:28)
[2023-02-07] MEDS: CYCLOBENZAPRINE HCL 10 MG TAB PO SCH ×4 (05:06→21:28)
[2023-02-07] MEDS: OXYCODONE W/ ACETAMINOPHEN 5/325MG TABLET PO PRN ×3 (07:36→19:59)
[2023-02-07] MEDS: DOCUSATE SOD 100 MG CAP PO SCH ×2 (10:46→21:28)
[2023-02-07] MEDS: TAMSULOSIN HYDROCHLORIDE 0.4 MG CAP PO SCH (17:38)
[2023-02-07] MEDS: ATORVASTATIN 20 MG TAB PO SCH (21:28)
[2023-02-08] VITALS (7 sets, daily range): BP systolic 104–120; BP diastolic 60–78; PULSE 52–90; RESP 16–18; TEMP 37.1; O2SAT 91–98
[2023-02-08] MEDS: OXYCODONE W/ ACETAMINOPHEN 5/325MG TABLET PO PRN ×5 (01:35→21:13)
[2023-02-08] MEDS: MEROPENEM 2 GM in SODIUM CHL 0.9% 250 ML IV SCH ×3 (01:36→18:26)
[2023-02-08] MEDS: GABAPENTIN 100 MG CAP PO SCH ×3 (05:58→21:12)
[2023-02-08] MEDS: CYCLOBENZAPRINE HCL 10 MG TAB PO SCH ×3 (05:58→21:12)
[2023-02-08 06:55] LABS: Calcium 8.2 mg/dL (8.5-10.1); Chloride 107 mmol/L (98-107); Potassium 3.2 mmol/L (3.5-5.1); Sodium 139 mmol/L (136-145)
[2023-02-08 06:56] LABS: Anion Gap 6 (5-15); Carbon Dioxide 26 mmol/L (20-30)
[2023-02-08 06:58] LABS: Basophils # (auto) 0 10 ^3/uL (0-0.2); Basophils % (auto) 0.6 % (0.0-2.0); Eosinophils # (auto) 0.3 10 ^3/uL (0-0.8); Eosinophils % (auto) 4.8 % (0.0-7.0); Hematocrit 26.9 % (41.0-53.0); Hemoglobin 9.2 g/dL (13.5-17.5); Lymphocytes # (auto) 1.1 10 ^3/uL (0.4-5.4); Lymphocytes % (auto) 16.1 % (10.0-50.0); Mean Corpuscular Hemoglobin 30.7 pg (28.0-32.0); Mean Corpuscular Hgb Conc. 34.1 g/dL (32.0-36.0); Mean Corpuscular Volume 90.1 fL (80.0-100.0); Monocytes # (auto) 0.7 10 ^3/uL (0-1.3); Monocytes % (auto) 9.6 % (0.0-12.0); Neutrophils # (auto) 4.9 10 ^3/uL (1.6-8.6); Neutrophils % (auto) 68.9 % (37.0-80.0); Red Blood Cells 2.99 10^6/uL (4.5-5.90); Red Cell Distribution Width 15.7 % (11.8-14.3); White Blood Cell 7.1 10^3/uL (4.4-10.8)
[2023-02-08 07:01] LABS: BUN/Creatinine Ratio 15.3 (10.0-20.0); Blood Urea Nitrogen 11 mg/dL (9-23); Glucose 92 mg/dL (74-106)
[2023-02-08] MEDS: DOCUSATE SOD 100 MG CAP PO SCH ×2 (09:28→21:12)
[2023-02-08] MEDS ORDERED: ALPRAZolam 0.5 MG TAB PO PRN (15:45)
[2023-02-08] MEDS: TAMSULOSIN HYDROCHLORIDE 0.4 MG CAP PO SCH (17:29)
[2023-02-08] MEDS: ATORVASTATIN 20 MG TAB PO SCH (21:12)
[2023-02-09] MEDS: OXYCODONE W/ ACETAMINOPHEN 5/325MG TABLET PO PRN ×4 (01:32→15:53)
[2023-02-09] MEDS: MEROPENEM 2 GM in SODIUM CHL 0.9% 250 ML IV SCH ×3 (01:37→18:00)
[2023-02-09] MEDS: MORPHINE SULFATE INJ 2 MG/ml SYRG IV PRN (04:56)
[2023-02-09 05:00] VITALS: BP 123/73; PULSE 87; RESP 16; TEMP 98.3; O2SAT 95
[2023-02-09] MEDS: CYCLOBENZAPRINE HCL 10 MG TAB PO SCH ×2 (06:20→13:32)
[2023-02-09] MEDS: GABAPENTIN 100 MG CAP PO SCH ×2 (06:20→13:32)
[2023-02-09 08:00] VITALS: BP 111/70; PULSE 88; PULSE 91; RESP 20; TEMP 98.3; O2SAT 93
[2023-02-09] MEDS: DOCUSATE SOD 100 MG CAP PO SCH (09:40)
[2023-02-09 12:00] VITALS: BP 117/84; PULSE 77; RESP 16; TEMP 98.5; O2SAT 93
[2023-02-09 16:00] VITALS: BP 159/58; PULSE 85; RESP 20; TEMP 98.1; O2SAT 96
[2023-02-09 17:45] VITALS: TEMP 36.9
[2023-02-09] MEDS: TAMSULOSIN HYDROCHLORIDE 0.4 MG CAP PO SCH (18:00)
== END 2023-02-09 18:05 | disposition home health service (06) | DRG 460 ==
LOC: SUR 06:03 → TELE 15:13 → TELE-WESTW 17:51
PROVIDERS: ADMIT Orthopaedic Surgery; ATTEND Orthopaedic Surgery
PROC: 0SG0071 Fusion of Lumbar Vertebral Joint with Autologous Tissue Substitute, Posterior Approach, Posterior Column, Open Approach (ICD-10-PCS; 2023-02-04)
PROC: 4A11X4G Monitoring of Peripheral Nervous Electrical Activity, Intraoperative, External Approach (ICD-10-PCS; 2023-02-04)
PROC: 00NY0ZZ Release Lumbar Spinal Cord, Open Approach (ICD-10-PCS; 2023-02-04)
PROC: 01NB0ZZ Release Lumbar Nerve, Open Approach (ICD-10-PCS; 2023-02-04)
PROC: 05HA33Z Insertion of Infusion Device into Left Brachial Vein, Percutaneous Approach (ICD-10-PCS; principal; 2023-02-09)
PROC: B54NZZA Ultrasonography of Left Upper Extremity Veins, Guidance (ICD-10-PCS; 2023-02-09)
DX: M96.1 Postlaminectomy syndrome, not elsewhere classified (principal); J98.11 Atelectasis; N39.0 Urinary tract infection, site not specified; R78.81 Bacteremia; B96.5 Pseudomonas (aeruginosa) (mallei) (pseudomallei) as the cause of diseases classified elsewhere; R50.82 Postprocedural fever; E78.5 Hyperlipidemia, unspecified; Z20.822 Contact with and (suspected) exposure to COVID-19; G62.9 Polyneuropathy, unspecified; M54.16 Radiculopathy, lumbar region; N40.0 Benign prostatic hyperplasia without lower urinary tract symptoms; Z80.42 Family history of malignant neoplasm of prostate; Z83.3 Family history of diabetes mellitus; Z99.3 Dependence on wheelchair; Z88.8 Allergy status to other drugs, medicaments and biological substances
CPT/HCPCS: 36415; 71045; 72100; 76000; 80048; 80053; 85025; 86850; 86900; 86901; 87040; 87070; 87075; 87077; 87086; 87088; 87186; 87205; 87426; 87804; 96379; 97110; 97163; 97530; G0378; J0330; J0690; J0692; J2250; J2405; J2704; J3490; J7042